=== PATIENT | male | born 1950 | race Caucasian/White ===

== ENCOUNTER 2016-04-29 08:56 | Observation (INO) | payer BC ==
[2016-04-29] MEDS ORDERED: NS 0.9% 1000 ML* 1,000 ML IV ONE (09:18)
[2016-04-29] MEDS ORDERED: fentaNYL* 50 MCG/ML 2 ML VIAL (100 MCG VIAL) ONE (09:26)
[2016-04-29 09:27] LABS: Hematocrit 42 % (42-52); Hemoglobin 14.2 g/dl (14.0-18.0); Mean Corpuscular HGB Conc 34 g/dl (31-36); Mean Corpuscular Hemoglobin 29 pg (27-31); Mean Corpuscular Volume 85 fL (80-94); Mean Platelet Volume 9 um3 (7.4-10.4); Red Blood Count 4.96 10^6/ul (4.0-5.4); Red Cell Distribution Width 14 % (10.5-15)
[2016-04-29] MEDS ORDERED: Midazolam* 1 MG/ML 10 ML VIAL (10 MG) ONE (09:27)
[2016-04-29 09:29] LABS: Add Diff/Slide Review? Slide Review Added; Comments Flag Yes
[2016-04-29 09:38] LABS: Albumin 3.6 g/dL (3.2-5.2); BUN/Creatinine Ratio 18.3 (8-20); Calcium 9.3 mg/dL (8.6-10.3); EGFR African American 87.9 (>60); EGFR Non-African American 68.3 (>60); Globulin 4.2 g/dL (2-4); Potassium 3.8 mmol/L (3.5-5.0); Total Bilirubin 1.1 mg/dL (0.2-1.0); Total Protein 7.8 g/dL (6.4-8.9)
[2016-04-29 09:39] LABS: Troponin I 0.01 ng/mL (<0.04)
[2016-04-29 09:55] LABS: TSH (Thyroid Stimulating Horm) 1.85 mcIU/mL (0.34-5.60)
[2016-04-29] MEDS ORDERED: Acetaminophen TAB* 325 MG PO PRN ×2 (10:11→10:13)
[2016-04-29] MEDS ORDERED: Zolpidem TAB* 5 MG PO PRN (10:13)
[2016-04-29] MEDS ORDERED: Al Hydrox/Mg Hydrox/Simet LIQ* 30 ML UDC PO PRN (10:14)
[2016-04-29] MEDS ORDERED: traMADol TAB* 50 MG PO PRN (10:31)
[2016-04-29] MEDS ORDERED: Docusate CAP* 100 MG PO PRN (10:31)
[2016-04-29] MEDS ORDERED: Midazolam* 1 MG/ML 10 ML VIAL (10 MG) IV ONE (10:44)
[2016-04-29] MEDS ORDERED: fentaNYL* 50 MCG/ML 2 ML VIAL (100 MCG VIAL) IV SLOW PU ONE (10:45)
[2016-04-29] MEDS ORDERED: Magnesium Hydroxide LIQ* 30 ML UDC PO PRN (11:48)
[2016-04-29] MEDS ORDERED: Bisacodyl SUPP* 10 MG SUPP PR PRN (11:49)
[2016-04-29] MEDS: Apixaban* 5 MG TAB PO SCH (19:29)
[2016-04-29] MEDS: Dronedarone TAB* 400 MG PO SCH (19:29)
[2016-04-29] MEDS: Metoprolol Succinate XL TAB* 50 MG PO SCH (20:18)
--- NOTE | 2016-04-29 21:57 | HP ---
HISTORY AND PHYSICAL: DATE OF ADMISSION: 04/29/16 INDICATION FOR ADMISSION: Atrial fibrillation. HISTORY OF PRESENT ILLNESS: The patient is a 65-year-old gentleman with a history of paroxysmal atrial fibrillation who called the answering service today saying he was in atrial fibrillation. The patient had knee surgery 4 days ago for knee replacement. In general, the patient felt a little bit lightheaded with atrial fibrillation. He had no chest pain. He had no shortness of breath. He had mild palpitations. The patient was brought to the emergency room. He was noted to be in atrial fibrillation. His laboratory studies were unremarkable. The patient did undergo cardioversion x2 in the emergency room, but each time, was unable to maintain normal sinus rhythm. The patient is being admitted to the hospital for evaluation and repeat cardioversion in the morning. PAST MEDICAL HISTORY: Significant for arthritis, knee surgery, and atrial fibrillation. Past medical history is also significant for kidney stones. OUTPATIENT MEDICATIONS: 1. Multaq 400 mg b.i.d. 2. Metoprolol ER 50 mg a day. 3. Eliquis 5 mg b.i.d. 4. Potassium. 5. CPAP. ALLERGIES: No known drug allergies. FAMILY HISTORY: Not significant for coronary artery disease or cardiac arrhythmias. SOCIAL HISTORY: He is . 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 Denies tobacco or alcohol use. PHYSICAL EXAMINATION VITAL SIGNS: Height is 6 feet. Weight 211 pounds. Heart rate of 106, blood pressure of 131/81, respiratory rate is 20, and oxygen saturation 93% on room air. HEENT: Sclerae anicteric. Oropharynx is pink without erythema. NECK: Carotids are 2+ without bruits. JVD is normal. Thyroid is normal. LUNGS: Clear to auscultation bilaterally. No dullness to percussion. CARDIAC: S1, S2 without any murmurs, rubs, or gallops. ABDOMEN: Soft, nontender, and nondistended with normoactive bowel sounds. EXTREMITIES: Show no edema. He does have some erythema on to his left knee where he had his knee replacement surgery. DIAGNOSTIC STUDY/LAB DATA: EKG demonstrates atrial fibrillation with heart rate of 106. CBC within normal limits. Chemistries within normal limits; potassium of 3.8, BUN 20, and creatinine 1.09. TSH of 1.85. AST and ALT are within normal limits. Troponin level is negative. IMPRESSION: This is a 65-year-old gentleman with history of paroxysmal atrial fibrillation who was admitted to the hospital because of atrial fibrillation. He underwent cardioversion in the emergency room, but did not convert to normal sinus rhythm. The patient will be observed overnight and attempt at repeat cardioversion in the morning. CC: Dr. Julian; Gerardo Jose DO * [id number]/[facility] #: [id number] [facility]
--- NOTE | 2016-04-30 04:20 | CARD ---
CC: Dr. Julian; Gerardo Jose DO CARDIOVERSION REPORT: DATE OF STUDY: 04/29/16 PROCEDURE: Cardioversion. INDICATION: Atrial fibrillation. HISTORY OF PRESENT ILLNESS: The patient is a 65-year-old gentleman with a history of paroxysmal atr ial fibrillation, who had a knee surgery 4 days ago. The patient called the answering service today saying he was back in atrial fibrillation. The patient was brought to the emergency room for cardi oversion. DESCRIPTION OF PROCEDURE: The patient was in a fasting state. Informed consent had been obtained p rior to the procedure. All labs had been reviewed. The patient was given 5 mg of Versed and 50 mcg of fentanyl for conscious sedation. The patient was cardioverted with 150 joules of synchronized b iphasic energy. The patient did not convert to normal sinus rhythm with that procedure. The patien t was given an additional 1 mg of Versed. The patient was cardioverted with 200 joules of synchroni zed biphasic energy. The patient converted to normal sinus rhythm for 5 seconds and then back to at rial fibrillation. At that time, the decision was to stop the procedure. The patient will be admit marcos to the hospital and reattempt cardioversion in the morning. [id number]/[facility] #: [id number]
[2016-04-30 05:01] LABS: BUN/Creatinine Ratio 20.2 (8-20); Calcium 8.5 mg/dL (8.6-10.3); EGFR African American 92.8 (>60); EGFR Non-African American 72.1 (>60)
[2016-04-30] MEDS: Apixaban* 5 MG TAB PO SCH (07:09)
[2016-04-30] MEDS: Dronedarone TAB* 400 MG PO SCH (07:09)
[2016-04-30] MEDS: Metoprolol Succinate XL TAB* 50 MG PO SCH (07:09)
[2016-04-30] MEDS ORDERED: Midazolam* 1 MG/ML 5 ML VIAL (5 MG) ONE (10:41)
[2016-04-30] MEDS ORDERED: fentaNYL* 50 MCG/ML 2 ML VIAL (100 MCG VIAL) ONE (10:41)
[2016-04-30] MEDS ORDERED: Flumazenil* 0.1 MG/ML 5 ML MDV ONE (10:42)
[2016-04-30] MEDS ORDERED: Naloxone* 0.4 MG/ML 1 ML VIAL ONE (10:42)
[2016-04-30 11:48] VITALS: BP 128/72
[2016-04-30] MEDS ORDERED: Dronedarone TAB* 400 MG PO SCH (18:00)
[2016-04-30] MEDS ORDERED: Apixaban* 5 MG TAB PO SCH (18:00)
[2016-04-30] MEDS ORDERED: Metoprolol Succinate XL TAB* 50 MG PO SCH (18:00)
--- NOTE | 2016-04-30 22:29 | CARD ---
DATE OF PROCEDURE: 04/30/16 - ROOM #433 PROCEDURE: Cardioversion. INDICATION: Atrial fibrillation. The patient is a 65-year-old gentleman with a history of paroxysmal atrial fibrillation, who had knee surgery 5 days ago. The patient came to the emergency room yesterday in atrial fibrillation. A cardioversion in the emergency room was unable to convert to normal sinus rhythm. The patient was admitted to the hospital for repeat cardioversion today. DESCRIPTION OF PROCEDURE: The patient was in a fasting state. Informed consent had been obtained prior to the procedure. All labs had been reviewed. The patient is on Eliquis and Multaq for his atrial fibrillation. The patient was given 5 mg of Versed and 50 mg of fentanyl for conscious sedation. The patient was cardioverted with 200 joules of synchronized biphasic energy. The patient converted to normal sinus rhythm. The patient tolerated the procedure well. There are no complications. The patient was seen by Dr. Jose in followup. CC: Gerardo Jose DO* [id number]/[facility] #: [id number] [facility]
--- NOTE | 2016-05-01 03:16 | DS ---
77DISCHARGE SUMMARY: DATE OF ADMISSION: 04/29/16 DATE OF DISCHARGE: 04/30/16 INDICATION FOR ADMISSION: Atrial fibrillation. HISTORY OF PRESENT ILLNESS: The patient is a 65-year-old gentleman with a history of paroxysmal atrial fibrillation who had recent knee surgery. Please see my admission history and physical for details of his presentation. The patient came to the emergency room yesterday morning in atrial fibrillation. A cardioversion in the emergency room was unsuccessful, converted into normal sinus rhythm. The patient was admitted to the hospital overnight. The patient underwent repeat cardioversion this morning and was able to convert to normal sinus rhythm. The patient is being discharged home. DISCHARGE MEDICATIONS: 1. Multaq 400 mg b.i.d. 2. Metoprolol ER 50 mg twice a day. 3. Eliquis 5 mg b.i.d. 4. Potassium. 5. CPAP. ALLERGIES: No known drug allergies. PHYSICAL EXAMINATION: Vital Signs: On physical examination today heart rate is 72, blood pressure 113/75, respiratory rate is 16. Neck: Carotids are 2+ without bruits. Cardiac Exam: S1 and S2 without any murmurs, rubs, or gallops. Lungs: Clear to auscultation. Extremities: Show edema on his right leg where he had his knee surgery. DISPOSITION: The patient will be discharged home. FOLLOWUP: The patient will follow up with Dr. Jose in 2 to 3 weeks. CC: Dr. Julian; Gerardo Jose, * [id number]/[facility] #: [id number] [facility]TDD
== END 2016-04-30 13:50 | disposition home or self-care (01) ==
LOC: ED 08:56 → MEDTELE 10:10
PROVIDERS: ADMIT Specialist; ATTEND Specialist
DX: I48.0 Paroxysmal atrial fibrillation (principal); Z79.01 Long term (current) use of anticoagulants
CPT/HCPCS: 36415; 80048; 80053; 83605; 83735; 84443; 84484; 85025; 85379; 85610; 92960; 93005; 99285; A9270-GY; G0378; J2250; J2310; J3010

== ENCOUNTER 2018-05-16 18:05 | Inpatient (IN) | payer MEDICARE, BC ==
--- OUTSIDE RECORDS SUMMARY | 2018-05-16 18:32 | XMS REPORT | Continuity of Care Document ---
:1950 External Reference #:[id number] Author Name TerrieElisabet Care Team Providers Name Role Phone Dominick Julian MD Primary Care Physician Unavailable Payers Type Date Identification Numbers Payment Provider Subscriber Effective: 2017 Policy Number: [id number] Medicare Srinivasa Medellin PayID: [id number] [address] [place] [address] Effective: 2011 Policy Number: [id number] [employer] Srinivasa Medellin PayID: [id number] [address] [address] [place] [address] Advance Directives Description No Information Available Problems Date Description Provider Status Onset: 04/25/2015 Atrial fibrillation Gerardoguadalupe Jose, DO FACC Active Family History Date Family Member(s) Problem(s) Comments General cancer Social History Type Date Description Comments Sex Unknown Marital Status Lives With spouse 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, Retired principal Tobacco Use Start: Unknown Never Smoked Cigarettes Smoking Status Reviewed: 04/23/18 Never Smoked Cigarettes ETOH Use Denies alcohol use Tobacco Use Start: Unknown Patient has never smoked Recreational Drug Use Denies Drug Use Exercise Type/Frequency Exercises regularly Allergies, Adverse Reactions, Alerts Description No Known Drug Allergies Medications Medication Date Status Form Strength Qnty SIG Indications Ordering Provider Propafenone Active Caps ER 225mg 270cap 1 by I48.0 Gerardo Downs HCL ER 018 12HR s mouth Jose, DO three FACC times a day Metoprolol Active Tablets ER 25mg 180tab 1 by Gerardo S. Succinate ER 017 24HR s mouth Jose, DO twice FACC daily Eliquis Active Tablets 5mg 180tab 1 by I48.91 Gerardo S. 016 s mouth Jose, DO twice a FACC day Potassium Active Tablets ER 10Meq 2 tablet Unknown Citrate ER 000 (1080 mg) Am, 1 tablet afternoon , 2 tablets PM Cpap Mask And Active Device used at Unknown Supplies 000 bedtime ( started 07/29/15) Amoxicillin Active Tablets 875mg 1 po qd Unknown 000 for tooth extractio n/prn Propafenone Hx Tablets 225mg 180tab 1 by I48.0 Gerardo S. HCL 017 - s mouth Jose, DO three FACC 018 times a day Propafenone Hx Caps ER 325mg 60caps take one I48.0 Gerardo S. HCL ER 017 - 12HR tablet Jose, DO twice FACC 017 daily. Propafenone Hx Caps ER 225mg 180cap take 1 by I48.0 Gerardo S. HCL ER 017 - 12HR s mouth Jose, DO twice a FACC 017 day Metoprolol Hx Tablets ER 50mg 180tab 1 by Gerardo S. Succinate ER 017 - 24HR s mouth Jose, DO every FACC 017 morning and 1/2 every evening Multaq Hx Tablets 400mg 180tab 1 by I48.0 Gerardo S. 016 - s mouth Jose, DO twice a FACC 017 day with meals Metoprolol Hx Tablets ER 100mg 90tabs 1/2 by Gerardo S. Succinate ER 016 - 24HR mouth in Jose, DO the FACC 017 morning and 1/2 by mouth in the evening Metoprolol 2 Hx Tablets 50mg 180tab 1 tablet Gerardo S. Tartrate 016 - s by mouth Jose, DO twice a FACC 016 day Ibuprofen 00/0 Hx x2 months Unknown 000 - as needed 016 Metoprolol 0 Hx Tablets 25mg 180tab 1 tablet Gerardo S. Tartrate 000 - s by mouth DO Damon twice FAC 016 daily Immunizations Description No Information Available Vital Signs Date Vital Result Comment 04/23/2018 3:48pm Height 72 inches 6'0" Weight 213.00 lb no shoes Heart Rate 68 /min BP Systolic Sitting 118 mmHg reg cuff BP Diastolic Sitting 70 mmHg reg cuff BP Systolic Standing 116 mmHg reg cuff BP Diastolic Standing 70 mmHg reg cuff Respiratory Rate 12 /min BMI (Body Mass Index) 28.9 kg/m2 02/17/2018 1:58pm Weight 216.00 lb Heart Rate 69 /min BP Systolic Sitting 130 mmHg Lue reg cuff BP Diastolic Sitting 80 mmHg Lue reg cuff BP Systolic Standing 125 mmHg BP Diastolic Standing 80 mmHg Respiratory Rate 18 /min 01/22/2018 1:41pm Height 72 inches 6'0" Weight 213.00 lb BP Systolic Sitting 128 mmHg left arm manual BP Diastolic Sitting 84 mmHg left arm manual BP Systolic Standing 128 mmHg left arm manual BP Diastolic Standing 82 mmHg left arm manual Pain Level 0 BMI (Body Mass Index) 28.9 kg/m2 08/05/2017 3:08pm Height 72 inches 6'0" Weight 213.00 lb with out shoes Heart Rate 54 /min BP Systolic Sitting 120 mmHg Lue lg cuff BP Diastolic Sitting 80 mmHg Lue lg cuff BP Systolic Standing 120 mmHg Lue lg cuff BP Diastolic Standing 90 mmHg Lue lg cuff Respiratory Rate 16 /min BMI (Body Mass Index) 28.9 kg/m2 04/12/2017 3:15pm Height 72 inches 6'0" Weight 212.00 lb without shoes Heart Rate 70 /min BP Systolic Sitting 138 mmHg Lue reg cuff BP Diastolic Sitting 74 mmHg Lue reg cuff BP Systolic Standing 149 mmHg Lue reg cuff BP Diastolic Standing 80 mmHg Lue reg cuff Respiratory Rate 17 /min BMI (Body Mass Index) 28.7 kg/m2 04/09/2017 8:44am Height 72 inches 6'0" Weight 206.00 lb Heart Rate 82 /min BP Systolic 120 mmHg BP Diastolic 72 mmHg Respiratory Rate 14 /min Body Temperature 97.9 F Pain Level 0 BMI (Body Mass Index) 27.9 kg/m2 04/03/2017 8:33am Height 72 inches 6'0" Weight 206.00 lb no shoes Heart Rate 74 /min BP Systolic Sitting 118 mmHg Lue reg cuff BP Diastolic Sitting 80 mmHg Lue reg cuff BP Systolic Standing 108 mmHg Lue reg cuff BP Diastolic Standing 78 mmHg Lue reg cuff Respiratory Rate 16 /min BMI (Body Mass Index) 27.9 kg/m2 02/21/2017 1:52pm Height 72 inches 6'0" Weight 203.00 lb Heart Rate 62 /min BP Systolic Sitting 126 mmHg Lue reg cuff BP Diastolic Sitting 84 mmHg Lue reg cuff BP Systolic Standing 130 mmHg Lue reg cuff BP Diastolic Standing 86 mmHg Lue reg cuff Respiratory Rate 16 /min BMI (Body Mass Index) 27.5 kg/m2 09/24/2016 3:30pm Height 72 inches 6'0" Weight 204.00 lb without shoes Heart Rate 76 /min reg BP Systolic Sitting 138 mmHg Rue reg cuff BP Diastolic Sitting 88 mmHg Rue reg cuff BP Systolic Standing 144 mmHg Rue reg cuff BP Diastolic Standing 90 mmHg Rue reg cuff Respiratory Rate 17 /min BMI (Body Mass Index) 27.7 kg/m2 08/07/2016 8:35am Height 72 inches 6'0" Weight 214.00 lb Heart Rate 58 /min BP Systolic 100 mmHg BP Diastolic 79 mmHg Respiratory Rate 16 /min Body Temperature 96.3 F Pain Level 3 BMI (Body Mass Index) 29.0 kg/m2 03/29/2016 3:54pm Height 72 inches 6'0" Weight 211.00 lb with shoes Heart Rate 56 /min BP Systolic Sitting 128 mmHg LA reg cuff BP Diastolic Sitting 88 mmHg LA reg cuff BP Systolic Standing 122 mmHg LA BP Diastolic Standing 86 mmHg LA Respiratory Rate 14 /min BMI (Body Mass Index) 28.6 kg/m2 11/08/2015 11:29am Height 72 inches 6'0" Weight 221.00 lb with shoes Heart Rate 70 /min BP Systolic Sitting 100 mmHg Ra Lg cuff BP Diastolic Sitting 70 mmHg Ra Lg cuff BP Systolic Standing 108 mmHg Ra lg cuff BP Diastolic Standing 76 mmHg Ra lg cuff Respiratory Rate 17 /min BMI (Body Mass Index) 30.0 kg/m2 10/10/2015 3:09pm Height 72 inches 6'0" Weight 230.00 lb with shoes Heart Rate 80 /min BP Systolic Sitting 128 mmHg Ra lrg cuff BP Diastolic Sitting 84 mmHg Ra lrg cuff BP Systolic Standing 124 mmHg Ra lrg cuff BP Diastolic Standing 88 mmHg Ra lrg cuff Respiratory Rate 17 /min BMI (Body Mass Index) 31.2 kg/m2 Ejection Fraction 50-55% 04/27/15 08/10/2015 1:21pm Height 72 inches 6'0" Weight 237.50 lb w/ shoes Heart Rate 90 /min BP Systolic Sitting 126 mmHg Rue, lg cuff BP Diastolic Sitting 96 mmHg Rue, lg cuff BP Systolic Standing 128 mmHg Rue BP Diastolic Standing 100 mmHg Rue Respiratory Rate 18 /min BMI (Body Mass Index) 32.2 kg/m2 08/03/2015 1:26pm Height 72 inches 6'0" Weight 242.00 lb with shoes Heart Rate 66 /min BP Systolic Sitting 134 mmHg LA reg cuff BP Diastolic Sitting 94 mmHg LA reg cuff BP Systolic Standing 136 mmHg LA reg cuff BP Diastolic Standing 94 mmHg LA reg cuff Respiratory Rate 17 /min BMI (Body Mass Index) 32.8 kg/m2 06/01/2015 1:47pm Height 72 inches 6'0" Weight 240.00 lb Heart Rate 88 /min BP Systolic Sitting 148 mmHg Ra large cuff BP Diastolic Sitting 94 mmHg Ra large cuff BP Systolic Standing 146 mmHg Ra BP Diastolic Standing 92 mmHg Ra Respiratory Rate 16 /min BMI (Body Mass Index) 32.5 kg/m2 Ejection Fraction 50-55% 04/27/15 [place] 04/25/2015 4:26pm Height 72 inches 6'0" Weight 240.00 lb with shoes Heart Rate 92 /min BP Systolic 128 mmHg Ra lg cuff BP Diastolic 90 mmHg Ra lg cuff BP Systolic Sitting 124 mmHg La lg cuff BP Diastolic Sitting 90 mmHg La lg cuff BP Systolic Standing 122 mmHg La lg cuff BP Diastolic Standing 90 mmHg La lg cuff Respiratory Rate 17 /min BMI (Body Mass Index) 32.5 kg/m2 Results Test Date Facility Test Result H/L Range Note CBC Auto Diff 02/14/2018 [facility] White Blood 8.1 10^3/uL N 3.5-10.[address] [place] [address] [phone] Red Blood Count 5.68 10^6/uL High 4.00-5.40 Hemoglobin 16.6 g/dL N 14.0-18.0 Hematocrit 50 % N 42-52 Mean Corpuscular Volume 88 fL N 80-94 Mean Corpuscular Hemoglobin 29 pg N 27-31 Mean Corpuscular HGB Conc 33 g/dL N 31-36 Red Cell Distribution Width 14 % N 10.5-15 Platelet Count 207 10^3/uL N 150-450 Mean Platelet Volume 8.9 um3 N 7.4-10.4 Abs Neutrophils 5.2 10^3/uL N 1.5-7.7 Abs Lymphocytes 1.9 10^3/uL N 1.0-4.8 Abs Monocytes 0.8 10^3/uL N 0-0.8 Abs Eosinophils 0.1 10^3/uL N 0-0.6 Abs Basophils 0.1 10^3/uL N 0-0.2 Abs Nucleated RBC 0 10^3/uL Granulocyte % 64.8 % N 38-83 Lymphocyte % 23.5 % Low 25-47 Monocyte % 10.0 % High 0-7 Eosinophil % 1.1 % N 0-6 Basophil % 0.6 % N 0-2 Nucleated Red Blood Cells % 0.2 Comp Metabolic Panel 02/14/2018 [facility] Sodium 139 mmol/L N 135-[address] [place] [address] [phone] Potassium 4.5 mmol/L N 3.5-5.0 Chloride 108 mmol/L N 101-111 Co2 Carbon Dioxide 26 mmol/L N 22-32 Anion Gap 5 mmol/L N 2-11 Glucose 101 mg/dL High 70-100 Blood Urea Nitrogen 23 mg/dL N 6-24 Creatinine 1.16 mg/dL N 0.67-1.17 BUN/Creatinine Ratio 19.8 N 8-20 Calcium 9.1 mg/dL N 8.6-10.3 Total Protein 6.8 g/dL N 6.4-8.9 Albumin 4.0 g/dL N 3.2-5.2 Globulin 2.8 g/dL N 2-4 Albumin/Globulin Ratio 1.4 N 1-3 Total Bilirubin 1.00 mg/dL N 0.2-1.0 Alkaline Phosphatase 66 U/L N 34-104 Alt 12 U/L N 7-52 Ast 16 U/L N 13-39 Egfr Non- 63.2 >60 Egfr 76.5 >60 1 Laboratory test 02/14/2018 [facility] Magnesium 2.0 mg/dL N 1.9-2.[address] [place] [address] [phone] Basic Metabolic 04/08/2017 [facility] Sodium 140 mmol/L N 133- 145 Panel [address] [place] [address] [phone] Potassium 4.6 mmol/L N 3.5-5.0 Chloride 106 mmol/L N 101-111 Co2 Carbon Dioxide 31 mmol/L N 22-32 Anion Gap 3 mmol/L N 2-11 Glucose 92 mg/dL N 70-100 Blood Urea Nitrogen 30 mg/dL High 6-24 Creatinine 1.18 mg/dL High 0.67-1.17 BUN/Creatinine Ratio 25.4 High 8-20 Calcium 9.5 mg/dL N 8.6-10.3 Egfr Non- 62.1 >60 Egfr 79.9 >60 2 Laboratory test 04/08/2017 [facility] Magnesium 2.0 mg/dL N 1.9-2.7 finding [address] [place] [address] [phone] Laboratory test 02/11/2017 [facility] Magnesium 2.0 mg/dL N 1.9-2.7 finding [address] [place] [address] [phone] Comp Metabolic 02/11/2017 [facility] Sodium 140 mmol/L N 133- 145 Panel [address] [place] [address] [phone] Potassium 4.2 mmol/L N 3.5-5.0 Chloride 106 mmol/L N 101-111 Co2 Carbon Dioxide 28 mmol/L N 22-32 Anion Gap 6 mmol/L N 2-11 Glucose 106 mg/dL High 70-100 Blood Urea Nitrogen 28 mg/dL High 6-24 Creatinine 1.27 mg/dL High 0.67-1.17 BUN/Creatinine Ratio 22.0 High 8-20 Calcium 9.7 mg/dL N 8.6-10.3 Total Protein 7.1 g/dL N 6.4-8.9 Albumin 3.9 g/dL N 3.2-5.2 Globulin 3.2 g/dL N 2-4 Albumin/Globulin Ratio 1.2 N 1-3 Total Bilirubin 0.90 mg/dL N 0.2-1.0 Alkaline Phosphatase 66 U/L N 34-104 Alt 14 U/L N 7-52 Ast 13 U/L N 13-39 Egfr Non- 57.1 N >60 Egfr 73.4 N >60 3 Comp Metabolic Panel 11/04/2015 [facility] Sodium 141 mmol/L N 133-145 [address] [place] [address] [phone] Potassium 4.1 mmol/L N 3.5-5.0 Chloride 108 mmol/L N 101-111 Co2 Carbon Dioxide 27 mmol/L N 22-32 Anion Gap 6 mmol/L N 2-11 Glucose 93 mg/dL N 70-100 Blood Urea Nitrogen 30 mg/dL High 6-24 Creatinine 1.24 mg/dL High 0.67-1.17 BUN/Creatinine Ratio 24.2 High 8-20 Calcium 8.9 mg/dL N 8.6-10.3 Total Protein 6.5 g/dL N 6.4-8.9 Albumin 3.7 g/dL N 3.2-5.2 Globulin 2.8 g/dL N 2-4 Albumin/Globulin Ratio 1.3 N 1-3 Total Bilirubin 0.70 mg/dL N 0.2-1.0 Alkaline Phosphatase 64 U/L N 34-104 Alt 9 U/L N 7-52 Ast 10 U/L Low 13-39 Egfr Non- 58.9 N >60 Egfr 75.7 N >60 4 Laboratory test 06/20/2015 [facility] Inr/Protime 1.11 N 0.89- 1.11 finding [address] [place] [address] [phone] Partial Thrombo Time PTT 35.8 seconds N 26.0-36.3 Inr/Protime 04/25/2015 [facility] Inr 1.06 N 0.89-1.11 [address] [place] [address] [phone] Laboratory test 04/25/2015 [facility] Partial 40.1 High 26.0- 36.3 finding 101 [facility] [place] [address] Time PTT [phone] Free T4 (Free Thyroxine) 0.85 ng/mL N 0.61-1.12 TSH (Thyroid Stim Horm) 3.54 ?IU/mL N 0.34-5.60 B-Type Natriuretic Peptide BNP 508 pg/mL High 5 Comp Metabolic Panel 04/25/2015 [facility] Sodium 139 mmol/L N 133-[address] [place] [address] [phone] Potassium 4.5 mmol/L N 3.5-5.0 Chloride 104 mmol/L N 101-111 Co2 Carbon Dioxide 30 mmol/L N 22-32 Anion Gap 5 mmol/L N 2-11 Glucose 106 mg/dL High 70-100 Blood Urea Nitrogen 30 mg/dL High 6-24 Creatinine 1.30 mg/dL High 0.67-1.17 BUN/Creatinine Ratio 23.1 High 8-20 Calcium 9.1 mg/dL N 8.6-10.3 Total Protein 7.1 g/dL N 6.4-8.9 Albumin 4.0 g/dL N 3.2-5.2 Globulin 3.1 g/dL N 2-4 Albumin/Globulin Ratio 1.3 N 1-3 Total Bilirubin 0.60 mg/dL N 0.2-1.0 Alkaline Phosphatase 68 U/L N 34-104 Alt 19 U/L N 7-52 Ast 15 U/L N 13-39 Egfr Non- 55.9 N >60 Egfr 71.9 N >60 6 CBC Auto Diff 04/25/2015 [facility] White Blood 8.3 10^3/uL N 3.5-10.[address] [place] [address] [phone] Red Blood Count 5.63 10^6/uL High 4.0-5.4 Hemoglobin 16.1 g/dL N 14.0-18.0 Hematocrit 49 % N 42-52 Mean Corpuscular Volume 86 fL N 80-94 Mean Corpuscular Hemoglobin 29 pg N 27-31 Mean Corpuscular HGB Conc 33 g/dL N 31-36 Red Cell Distribution Width 14 % N 10.5-15 Platelet Count 216 10^3/uL N 150-450 Mean Platelet Volume 8 um3 N 7.4-10.4 Abs Neutrophils 4.7 10^3/uL N 1.5-7.7 Abs Lymphocytes 2.6 10^3/uL N 1.0-4.8 Abs Monocytes 0.7 10^3/uL N 0-0.8 Abs Eosinophils 0.1 10^3/uL N 0-0.6 Abs Basophils 0.1 10^3/uL N 0-0.2 Abs Nucleated RBC 0.01 10^3/uL N Granulocyte % 57.0 % N 38-83 Lymphocyte % 31.6 % N 25-47 Monocyte % 9.0 % N 1-9 Eosinophil % 1.7 % N 0-6 Basophil % 0.7 % N 0-2 Nucleated Red Blood Cells % 0.1 N Laboratory test 04/25/2015 [facility] Magnesium 2.1 mg/dL N 1.9-2.[address] [place] [address] [phone] 1 Because ethnic data is not always readily available, this report includes an eGFR for both -Americans and non- Americans. The National Kidney Disease Education Program (NKDEP) does not endorse the use of the MDRD equation for patients that are not between the ages of 18 and 70, are , have extremes of body size, muscle mass, or nutritional status, or are non- or non-. According to the National Kidney Foundation, irrespective of diagnosis, the stage of the disease is based on the level of kidney function: Stage Description GFR(mL/min/1.73 m(2)) 1 Kidney damage with normal or decreased GFR 90 2 Kidney damage with mild decrease in GFR 60-89 3 Moderate decrease in GFR 30-59 4 Severe decrease in GFR 15-29 5 Kidney failure <15 (or dialysis) 2 Because ethnic data is not always readily available, this report includes an eGFR for both -Americans and non- Americans. The National Kidney Disease Education Program (NKDEP) does not endorse the use of the MDRD equation for patients that are not between the ages of 18 and 70, are , have extremes of body size, muscle mass, or nutritional status, or are non- or non-. According to the National Kidney Foundation, irrespective of diagnosis, the stage of the disease is based on the level of kidney function: Stage Description GFR(mL/min/1.73 m(2)) 1 Kidney damage with normal or decreased GFR 90 2 Kidney damage with mild decrease in GFR 60-89 3 Moderate decrease in GFR 30-59 4 Severe decrease in GFR 15-29 5 Kidney failure <15 (or dialysis) 3 Because ethnic data is not always readily available, this report includes an eGFR for both -Americans and non- Americans. The National Kidney Disease Education Program (NKDEP) does not endorse the use of the MDRD equation for patients that are not between the ages of 18 and 70, are , have extremes of body size, muscle mass, or nutritional status, or are non- or non-. According to the National Kidney Foundation, irrespective of diagnosis, the stage of the disease is based on the level of kidney function: Stage Description GFR(mL/min/1.73 m(2)) 1 Kidney damage with normal or decreased GFR 90 2 Kidney damage with mild decrease in GFR 60-89 3 Moderate decrease in GFR 30-59 4 Severe decrease in GFR 15-29 5 Kidney failure <15 (or dialysis) 4 Because ethnic data is not always readily available, this report includes an eGFR for both -Americans and non- Americans. The National Kidney Disease Education Program (NKDEP) does not endorse the use of the MDRD equation for patients that are not between the ages of 18 and 70, are , have extremes of body size, muscle mass, or nutritional status, or are non- or non-. According to the National Kidney Foundation, irrespective of diagnosis, the stage of the disease is based on the level of kidney function: Stage Description GFR(mL/min/1.73 m(2)) 1 Kidney damage with normal or decreased GFR 90 2 Kidney damage with mild decrease in GFR 60-89 3 Moderate decrease in GFR 30-59 4 Severe decrease in GFR 15-29 5 Kidney failure <15 (or dialysis) 5 >100 to <200 pg/mL: likely compensated congestive heart failure (CHF) 200 to 400 pg/mL: likely moderate CHF >400 pg/mL: likely moderate to severe CHF 6 Because ethnic data is not always readily available, this report includes an eGFR for both -Americans and non- Americans. The National Kidney Disease Education Program (NKDEP) does not endorse the use of the MDRD equation for patients that are not between the ages of 18 and 70, are , have extremes of body size, muscle mass, or nutritional status, or are non- or non-. According to the National Kidney Foundation, irrespective of diagnosis, the stage of the disease is based on the level of kidney function: Stage Description GFR(mL/min/1.73 m(2)) 1 Kidney damage with normal or decreased GFR 90 2 Kidney damage with mild decrease in GFR 60-89 3 Moderate decrease in GFR 30-59 4 Severe decrease in GFR 15-29 5 Kidney failure <15 (or dialysis) Procedures Date Code Description Status 04/23/2018 38628 EKG Tracing & Interpretation Completed 02/17/2018 26257 EKG Tracing & Interpretation Completed 02/14/2018 78929 EKG, Interpretation Only Completed 01/22/2018 16911 EKG Tracing & Interpretation Completed 08/14/2017 21120 Holter Monitor Review (24 hr)dr review & interp only Completed 08/12/2017 09023 ECG Monitor/Recording W/Visual Superimposition Scanning Completed 08/05/2017 43748 EKG Tracing & Interpretation Completed 04/12/2017 89915 EKG Tracing & Interpretation Completed 04/08/2017 18509 EKG, Interpretation Only Completed 04/08/2017 99804 Cardioversion Completed 04/03/2017 35925 EKG Tracing & Interpretation Completed 03/13/2017 72536 Stress Test Completed 03/13/2017 52765 Stress Test Completed 03/13/2017 92090 Stress Test Completed 02/21/2017 86875 EKG Tracing & Interpretation Completed 02/11/2017 59855 EKG, Interpretation Only Completed 02/11/2017 97512 Cardioversion Completed 09/24/2016 88434 EKG Tracing & Interpretation Completed 09/04/2016 33515 EKG, Interpretation Only Completed 09/04/2016 91022 Cardioversion Completed 04/30/2016 15747 EKG, Interpretation Only Completed 04/30/2016 92931 Cardioversion Completed 04/29/2016 86389 Cardioversion Completed 03/29/2016 64629 EKG Tracing & Interpretation Completed 11/08/2015 56089 EKG Tracing & Interpretation Completed 10/14/2015 47384 Stress ECHO Interpretation/Report Hospital Completed 10/14/2015 55646 Treadmill Interp/Report Only Completed 10/14/2015 07544 Stress Test Supervsn W/Out I/R Completed 10/10/2015 09455 EKG Tracing & Interpretation Completed 10/09/2015 54580 Cardioversion Completed 08/10/2015 86722 EKG Tracing & Interpretation Completed 08/05/2015 37181 EKG, Interpretation Only Completed 08/05/2015 12744 Cardioversion Completed 08/03/2015 37268 EKG Tracing & Interpretation Completed 06/30/2015 09290 Cardiac Event Monitor Completed 06/20/2015 59608 Cardioversion Completed 06/04/2015 78713 Event Monitor/Phys Review/Interp. Completed 06/01/2015 68463 EKG Tracing & Interpretation Completed 04/27/2015 61660 Color Flow Doppler/Interp & Reprt Completed 04/27/2015 16826 Pulse Wave/Continuous-Interp.RPT Completed 04/27/2015 81096 Echocardiography, Transesophageal, Real Time W/Image 2D Completed W/W/O M-M 04/27/2015 10579 EKG, Interpretation Only Completed 04/27/2015 72036 Cardioversion Completed 04/25/2015 89291 EKG Tracing & Interpretation Completed 06/27/2011 26704 Xray Knee 3 Views Completed 06/27/2011 68133 Xray Knee 3 Views Completed 06/27/2011 42291 Rad Exam; Knee, Ap&L Completed 06/27/2011 54161 Rad Exam; Knee, Ap&L Completed Encounters Type Date Location Provider Dx Diagnosis Office Visit 02/17/2018 [facility] Gerardo S. Jose, I48.0 Paroxysmal atrial 2:20p Of [employer] DO FACC fibrillation I48.92 Unspecified atrial flutter G47.33 Obstructive sleep apnea (adult) (pediatric) Office Visit 01/22/2018 2:00p [facility] Gerardo S. I48.0 Paroxysmal atrial [employer] Jose, DO fibrillation FACC I48.92 Unspecified atrial flutter G47.33 Obstructive sleep apnea (adult) (pediatric) Office Visit 08/05/2017 3:40p [facility] Gerardo S. I48.0 Paroxysmal atrial Of [employer] Jose, DO fibrillation FACC I48.92 Unspecified atrial flutter G47.33 Obstructive sleep apnea (adult) (pediatric) Office Visit 04/12/2017 3:40p [facility] Gerardo S. I48.0 Paroxysmal atrial Of [employer] Jose, DO fibrillation FACC I48.92 Unspecified atrial flutter Office Visit 04/09/2017 [facility] Domin[facility] M77.41 Metatarsalgia, right 8:45a Services Of [place], M.D. foot C.M.A. Office Visit 04/03/2017 [place] Gerardo S. I48.0 Paroxysmal atrial 8:45a Cardiology Of Jose, DO fibrillation [employer] FACC G47.33 Obstructive sleep apnea (adult) (pediatric) Office Visit 02/21/2017 2:00p [facility] Gerardo S. I48.0 Paroxysmal atrial Of [employer]er Jose, DO fibrillation FACC G47.33 Obstructive sleep apnea (adult) (pediatric) Office Visit 02/11/2017 10:54a [facility] Gerardo S. I48.0 Paroxysmal atrial Of [employer] Jose, DO fibrillation FACC Office Visit 09/24/2016 3:40p [facility] Gerardo S. I48.0 Paroxysmal atrial Of [employer] Jose, DO fibrillation FACC G47.33 Obstructive sleep apnea (adult) (pediatric) Office Visit 08/07/2016 Orthopedic Dominick M84.374A Stress fracture, 8:30a Services Of Saima [employer] right foot, C.M.A. initial encounter for fracture Office Visit 04/30/2016 Dat Silvestre I48.0 Paroxysmal atrial 11:30a Cardiology Of Saima Alegria fibrillation [facility] Office Visit 04/29/2016 Dat Silvestre I48.0 Paroxysmal atrial 11:23a Cardiology Of Saima Alegria fibrillation [facility] Office Visit 03/29/2016 Dat Carrillo S. I48.0 Paroxysmal atrial 4:00p Cardiology Of Jose, DO fibrillation [employer] FACC G47.33 Obstructive sleep apnea (adult) (pediatric) Office Visit 11/08/2015 11:45a [facility] Gerardo S. I48.0 Paroxysmal atrial Of [employer]er Jose, DO fibrillation FACC G47.33 Obstructive sleep apnea (adult) (pediatric) Office Visit 10/10/2015 3:40p [facility] Gerardo S. I48.0 Paroxysmal atrial Of [employer] Jose, DO fibrillation FACC G47.33 Obstructive sleep apnea (adult) (pediatric) Office Visit 10/09/2015 3:05p [facility] Radha Spencer I48.0 Paroxysmal atrial Of [employer]er M.D. fibrillation Office Visit 08/10/2015 1:40p [facility] Gerardo S. I48.0 Paroxysmal atrial Of [employer] Jose, DO fibrillation FACC G47.33 Obstructive sleep apnea (adult) (pediatric) Office Visit 08/05/2015 Kimi HeartSharifa 10:46a Cardiology Saima Quevedo Office Visit 08/03/2015 [place] Gerardo Jose, I48.0 Paroxysmal atrial 1:40p Cardiology Of DO FACC fibrillation [facility] G47.33 Obstructive sleep apnea (adult) (pediatric) Office Visit 06/01/2015 2:00p [place] [facility] Gerardo Downs I48.0 Paroxysmal atrial Of [employer] Jose, DO fibrillation FACC Office Visit 04/25/2015 3:40p [place] [facility] Gerardo Downs I48.91 Unspecified atrial Of [employer] Jose, DO fibrillation FACC R06.02 Shortness of breath Office Visit 06/27/2011 10:15a [facility]opedic Emmanuel Blandon, 715.96 Osteoarthrosis Services Of Saima Lutz Or C.M.ASharifa Localized Lower Leg 716.96 Arthropathy Unspec Lower Leg Plan of Treatment 04/23/2018 - Gerardo Jose DO FACCI48.3 Typical atrial flutterReferral: Romeo Blue MD, Electrophysio,Clincl/PhysFollow up:f/u 6 [id number] Paroxysmal atrial fibrillation
[2018-05-16 18:47] LABS: Urine Appearance Clear; Urine Bacteria 1+ (Absent); Urine Bilirubin Negative (Negative); Urine Blood 2+ (Negative); Urine Color Yellow; Urine Glucose Negative (Negative); Urine Ketones Negative (Negative); Urine Nitrite Positive (Negative); Urine Protein Negative (Negative); Urine Red Blood Cell 2+(6-10/hpf) (Absent); Urine Specific Gravity 1.014 (1.010-1.030); Urine Urobilinogen Negative (Negative); Urine White Blood Cell 3+(>20/hpf) (Absent)
[2018-05-16 20:07] LABS: ABS Basophils 0.1 10^3/ul (0-0.2); ABS Eosinophils 0 10^3/ul (0-0.6); ABS Lymphocytes 1.5 10^3/ul (1.0-4.8); ABS Monocytes 1.3 10^3/ul (0-0.8); ABS Neutrophils 11.7 10^3/ul (1.5-7.7); ABS Nucleated RBC 0 10^3/ul; Eosinophil % 0.3 %; Hematocrit 39 % (42-52); Hemoglobin 13.2 g/dl (14.0-18.0); Lymphocyte % 10.2 %; Mean Corpuscular HGB Conc 34 g/dl (31-36); Mean Corpuscular Hemoglobin 28 pg (27-31); Mean Corpuscular Volume 84 fL (80-94); Mean Platelet Volume 7.5 fL (7.4-10.4); Nucleated Red Blood Cells % 0; Platelet Count 252 10^3/ul (150-450); Red Blood Count 4.66 10^6/ul (4.00-5.40); Red Cell Distribution Width 14 % (10.5-15); White Blood Count 14.5 10^3/ul (3.5-10.8)
[2018-05-16 20:17] LABS: Activated Partial Thrombo Time 37.1 seconds (26.0-36.3); INR 1.28 (0.77-1.02)
[2018-05-16 20:24] LABS: Albumin 3.7 g/dL (3.2-5.2); BUN/Creatinine Ratio 18.3 (8-20); Calcium 9.4 mg/dL (8.6-10.3); EGFR African American 86.7 (>60); EGFR Non-African American 71.7 (>60); Globulin 3.8 g/dL (2-4); Potassium 3.8 mmol/L (3.5-5.0); Total Protein 7.5 g/dL (6.4-8.9)
[2018-05-16] MEDS ORDERED: Acetaminophen TAB* 325 MG PO ONE (20:59)
[2018-05-16] MEDS ORDERED: NS 0.9% 1000 ML*IV.FLUID IV ONE (21:00)
[2018-05-16] MEDS ORDERED: cefTRIAXone(*) 1 GM in NS 0.9% 50 ML* 50 ML IVPB ONE (21:38)
--- NOTE | 2018-05-16 21:38 | ED ---
GI/ HPI - HPI Summary HPI Summary: 67-year-old male with past medical history Klaudia santiago presents with urinary symptoms for the past couple days. He admits to dysuria and frequency. he developed a fever today. He states he spoke with Dr. Chiu his urologist he sees for kidney stones and told him to the ED. He denies any rectal pain. No nausea vomiting. No flank pain. No diarrhea or constipation. Had normal bowel movement today. He denies any cough. No sore throat. No headache. He states he feels very weak. He has not taking anything for his fever. He states that when he gets dehydrated he goes into A. pamela is concerned about such. - History of Current Complaint Chief Complaint: EDUrogenitalProblems Time Seen by Provider: 05/16/18 21:31 Stated Complaint: FEVER, UROGENITAL PROBLEMS Pain Intensity: 0 - Additional Pertinent History Primary Care Physician: ERUM - Allergy/Home Medications Allergies/Adverse Reactions: Allergies Allergy/AdvReac Type Severity Reaction Status Date / Time No Known Allergies Allergy Verified 04/29/16 09:08 PMH/Surg Hx/FS Hx/Imm Hx Endocrine/Hematology History: Denies: Hx Diabetes, Hx Thyroid Disease Cardiovascular History: Reports: Hx Atrial Fibrillation Denies: Hx Angina, Hx Coronary Artery Disease, Hx Hypercholesterolemia, Hx Hypertension, Hx Myocardial Infarction, Hx Peripheral Vascular Disease Respiratory History: Denies: Hx Asthma, Hx Chronic Obstructive Pulmonary Disease (COPD) GI History: Denies: Hx Ulcer History: Reports: Hx Kidney Stones Musculoskeletal History: Denies: Hx Arthritis, Hx Osteoporosis Sensory History: Reports: Hx Contacts or Glasses Denies: Hx Cataracts, Hx Glaucoma Opthamlomology History: Reports: Hx Contacts or Glasses Denies: Hx Cataracts, Hx Glaucoma Neurological History: Denies: Hx Headaches, Hx Seizures, Hx Transient Ischemic Attacks (TIA) Psychiatric History: Denies: Hx Anxiety, Hx Depression - Surgical History Surgery Procedure, Year, and Place: HERNIA REPAIR 2004. VASECTOMY. RIGHT KNEE SURGERY WHEN A TEEN. Right knee replacement 04/25/16 - Immunization History Date of Tetanus Vaccine: pt unable to recall Date of Influenza Vaccine: Fall 2015 Infectious Disease History: No Infectious Disease History: Denies: Hx Clostridium Difficile, Hx Hepatitis, Hx Human Immunodeficiency Virus (HIV), Hx of Known/Suspected MRSA, Hx Shingles, Hx Tuberculosis, Hx Known/ Suspected VRE, Hx Known/Suspected VRSA, History Other Infectious Disease, Traveled Outside the [place] in Last 30 Days - Family History Known Family History: Positive: Other - cancer - Social History Alcohol Use: None Substance Use Type: Reports: None Smoking Status (MU): Never Smoked Tobacco Review of Systems Positive: Fever Negative: Chest Pain Negative: Shortness Of Breath Negative: Abdominal Pain Positive: dysuria, frequency. Negative: flank pain All Other Systems Reviewed And Are Negative: Yes Physical Exam Triage Information Reviewed: Yes Vital Signs On Initial Exam: Initial Vitals Temp Pulse Resp BP Pulse Ox 99.3 F 101 20 156/99 100 05/16/18 18:08 05/16/18 18:08 05/16/18 18:08 05/16/18 18:08 05/16/18 18:08 Vital Signs Reviewed: Yes Appearance: Positive: Ill-Appearing Skin: Positive: Warm, Dry Head/Face: Positive: Normal Head/Face Inspection Eyes: Positive: Normal, EOMI, DAVID, Conjunctiva Clear ENT: Positive: Normal ENT inspection, Pharynx normal, TMs normal Respiratory/Lung Sounds: Positive: Clear to Auscultation, Breath Sounds Present Cardiovascular: Positive: Normal, RRR Abdomen Description: Positive: Nontender, Soft. Negative: CVA Tenderness (R), CVA Tenderness (L) Bowel Sounds: Positive: Present Musculoskeletal: Positive: Normal Neurological: Positive: Normal Psychiatric: Positive: Normal Diagnostics - Vital Signs Vital Signs Temp Pulse Resp BP Pulse Ox 05/16/18 20:12 102.9 F 94 16 145/89 97 05/16/18 18:08 99.3 F 101 20 156/99 100 - Laboratory Lab Results: Lab Results 05/16/18 05/16/18 05/16/18 Range/Units 18:22 19:52 19:52 WBC 14.5 H (3.5-10.8) 10^3/ul RBC 4.66 (4.00-5.40) 10^6/ul Hgb 13.2 L (14.0-18.0) g/dl Hct 39 L (42-52) % MCV 84 (80-94) fL MCH 28 (27-31) pg MCHC 34 (31-36) g/dl RDW 14 (10.5-15) % Plt Count 252 (150-450) 10^3/ul MPV 7.5 (7.4-10.4) fL Neut % (Auto) 80.3 % Lymph % (Auto) 10.2 % White % (Auto) 8.6 % Eos % (Auto) 0.3 % Baso % (Auto) 0.6 % Absolute Neuts (auto) 11.7 H (1.5-7.7) 10^3/ul Absolute Lymphs (auto) 1.5 (1.0-4.8) 10^3/ul Absolute Monos (auto) 1.3 H (0-0.8) 10^3/ul Absolute Eos (auto) 0 (0-0.6) 10^3/ul Absolute Basos (auto) 0.1 (0-0.2) 10^3/ul Absolute Nucleated RBC 0 10^3/ul Nucleated RBC % 0 INR (Anticoag Therapy) 1.28 H (0.77-1.02) APTT 37.1 H (26.0-36.3) seconds Sodium (135-145) mmol/L Potassium (3.5-5.0) mmol/L Chloride (101-111) mmol/L Carbon Dioxide (22-32) mmol/L Anion Gap (2-11) mmol/L BUN (6-24) mg/dL Creatinine (0.67-1.17) mg/dL Est GFR ( Amer) (>60) Est GFR (Non-Af Amer) (>60) BUN/Creatinine Ratio (8-20) Glucose (70-100) mg/dL Lactic Acid (0.5-2.0) mmol/L Calcium (8.6-10.3) mg/dL Total Bilirubin (0.2-1.0) mg/dL AST (13-39) U/L ALT (7-52) U/L Alkaline Phosphatase (34-104) U/L Total Protein (6.4-8.9) g/dL Albumin (3.2-5.2) g/dL Globulin (2-4) g/dL Albumin/Globulin Ratio (1-3) Urine Color Yellow Urine Appearance Clear Urine pH 7.0 (5-9) Ur Specific [place] 1.014 (1.010-1.030) Urine Protein Negative (Negative) Urine Ketones Negative (Negative) Urine Blood 2+ A (Negative) Urine Nitrate Positive A (Negative) Urine Bilirubin Negative (Negative) Urine Urobilinogen Negative (Negative) Ur Leukocyte Esterase 2+ A (Negative) Urine WBC (Auto) 3+(>20/hpf) A (Absent) Urine RBC (Auto) 2+(6-10/hpf) A (Absent) Urine Bacteria 1+ A (Absent) Urine Yeast Present A (Absent) Urine Glucose Negative (Negative) 05/16/18 05/16/18 Range/Units 19:52 19:52 WBC (3.5-10.8) 10^3/ul RBC (4.00-5.40) 10^6/ul Hgb (14.0-18.0) g/dl Hct (42-52) % MCV (80-94) fL MCH (27-31) pg MCHC (31-36) g/dl RDW (10.5-15) % Plt Count (150-450) 10^3/ul MPV (7.4-10.4) fL Neut % (Auto) % Lymph % (Auto) % White % (Auto) % Eos % (Auto) % Baso % (Auto) % Absolute Neuts (auto) (1.5-7.7) 10^3/ul Absolute Lymphs (auto) (1.0-4.8) 10^3/ul Absolute Monos (auto) (0-0.8) 10^3/ul Absolute Eos (auto) (0-0.6) 10^3/ul Absolute Basos (auto) (0-0.2) 10^3/ul Absolute Nucleated RBC 10^3/ul Nucleated RBC % INR (Anticoag Therapy) (0.77-1.02) APTT (26.0-36.3) seconds Sodium 136 (135-145) mmol/L Potassium 3.8 (3.5-5.0) mmol/L Chloride 102 (101-111) mmol/L Carbon Dioxide 25 (22-32) mmol/L Anion Gap 9 (2-11) mmol/L BUN 19 (6-24) mg/dL Creatinine 1.04 (0.67-1.17) mg/dL Est GFR ( Amer) 86.7 (>60) Est GFR (Non-Af Amer) 71.7 (>60) BUN/Creatinine Ratio 18.3 (8-20) Glucose 113 H (70-100) mg/dL Lactic Acid 1.4 (0.5-2.0) mmol/L Calcium 9.4 (8.6-10.3) mg/dL Total Bilirubin 1.00 (0.2-1.0) mg/dL AST 13 (13-39) U/L ALT 10 (7-52) U/L Alkaline Phosphatase 90 (34-104) U/L Total Protein 7.5 (6.4-8.9) g/dL Albumin 3.7 (3.2-5.2) g/dL Globulin 3.8 (2-4) g/dL Albumin/Globulin Ratio 1.0 (1-3) Urine Color Urine Appearance Urine pH (5-9) Ur Specific [place] (1.010-1.030) Urine Protein (Negative) Urine Ketones (Negative) Urine Blood (Negative) Urine Nitrate (Negative) Urine Bilirubin (Negative) Urine Urobilinogen (Negative) Ur Leukocyte Esterase (Negative) Urine WBC (Auto) (Absent) Urine RBC (Auto) (Absent) Urine Bacteria (Absent) Urine Yeast (Absent) Urine Glucose (Negative) Result Diagrams: 05/16/18 19:52 05/16/18 19:52 Lab Statement: Any lab studies that have been ordered have been reviewed, and results considered in the medical decision making process. GIGU Course/Dx - Course Course Of Treatment: 67 year old male presents with urinary symptoms for past couple days. He denies any flank pain or rectal pain. He developed fever today. No nausea vomiting. On exam appears ill. Nontender flanks. Nontender abdomen. white blood cell count of the 14. Vitals tachycardic with fever. CT shows possible enhancement of the prostate which may indicate a prostatitis. Also thickening of the bladder. Gave dose of Rocephin initially for the UTIbut with CT added on Levaquin to cover for possible prostatitis. Discussed with hospitalist agrees to admit. - Diagnoses Differential Diagnoses - Male: Pyelonephritis, Ureteral Calculi, Urinary Tract Infection Provider Diagnoses: Urinary tract infection, Fever Discharge - Sign-Out/Discharge Documenting (check all that apply): Patient Departure - Discharge Plan Condition: Stable Disposition: ADMITTED TO [facility] - Billing Disposition and Condition Condition: STABLE Disposition: Admitted to [facility]
[2018-05-16 23:03] LABS: Influenza A Molecular NEGATIVE (Negative); Influenza B Molecular NEGATIVE (Negative)
[2018-05-16] MEDS ORDERED: Levofloxacin 750 MG IVPREMIX(* 750 MG/150 ML BAG IVPB ONE (23:03)
[2018-05-16] MEDS ORDERED: Acetaminophen TAB* 325 MG PO PRN (23:42)
[2018-05-16] MEDS ORDERED: Ondansetron INJ* 2 MG/ML VIAL IV PRN (23:42)
--- NOTE | 2018-05-16 23:44 | ADMNOTE ---
Subjective Date of Service: 05/16/18 - History and Physical Interval History: HISTORY AND PHYSICAL CHIEF COMPLAINT: Burning with urination, fever HISTORY OF PRESENTING ILLNESS: This is a 67 year old Male with history of atrial fibrillation, kidney stone with uric acid, who presents to the emergency room because of burning with urination, urgency and hesitancy X 3 days. This is associated with fever of 101F today and associated with chills. He reports that 6 weeks ago he had Left knee replacement and he is participating with Physical therapy and swimming more often. He feels bloated, but no abdominal pain. There is no back pain. PAST MEDICAL HISTORY Atrial fibrillation, rhythm control Kidney stone- uric acid PAST SURGICAL HISTORY Left knee replacement 6 weeks Hernia surgery Right knee replacement SOCIAL HISTORY Lives at home with Does not smoke No alcohol use FAMILY HISTORY Mother: esophageal cancer Father: emphysema Review of Systems - Measurements Intake and Output: Intake and Output Last 24 Hours 05/14/18 05/15/18 05/16/18 05/17/18 06:59 06:59 06:59 06:59 Intake Total 50 Balance 50 Weight 215 lb Intake: IVPB 50 - Review of Systems Constitutional Symptoms: Positive: Fatigue, Fever, Other - chills Dermatology: Negative: Rash, Skin Lesions HEENT: Negative: Change in Hearing, Dental Problems Eyes: Negative: Change in Vision, Double Vision Thyroid: Negative: Tremor, Frequent Defecation Pulmonary: Negative: Cough, Sputum, Shortness of Breath, Home Oxygen Cardiology: Negative: Chest Pain, Shortness of Breath, Palpitations Gastroenterology: Negative: Abdominal Pain, Nausea, Vomiting Genital - Urinary: Positive: Dysuria, Other - hesitancy, urgency, increaed frequency Musculoskeletal: Negative: Joint Stiffness Hematologic/Lymphatic: Positive: Use of Anticoagulant Negative: Anemia, Easy Brusing Neurology: Negative: Headache, Migraines, Unexplained Weakness Psychiatry: Negative: Depression, Anxiety Objective Active Medications: Acetaminophen (Tylenol Tab*) 650 mg PO Q6H PRN PRN Reason: FEVER/PAIN Apixaban (Eliquis*) 5 mg PO BID DARY Levofloxacin/Dextrose (Levaquin 750 Mg Ivpremix(*)) 750 mg in 150 mls @ 100 mls /hr IVPB ED ONCE ONE Stop: 05/17/18 00:32 Last Admin: 05/16/18 23:40 Dose: 100 mls/hr Sodium Chloride (Ns 0.9% 1000 Ml*) 1,000 mls @ 100 mls/hr IV PER RATE [facility] Ceftriaxone Sodium 1 gm/ (Sodium Chloride) 50 mls @ 200 mls/hr IVPB Q24H [facility] Non-Formulary Medication (Metoprolol Succinate Er) 25 mg PO BID [facility] Ondansetron HCl (Zofran Inj*) 4 mg IV Q6H PRN PRN Reason: NAUSEA Potassium Citrate (Urocit-K 10 (Nf)) 20 meq PO TID DARY Propafenone HCl (Rythmol Er (Nf)) 225 mg PO TID DARY; Protocol Vital Signs - 8 hr 05/16/18 05/16/18 05/16/18 18:08 20:12 21:31 Temperature 99.3 F 102.9 F Pulse Rate 101 94 96 Respiratory 20 16 Rate Blood Pressure 156/99 145/89 137/94 (mmHg) O2 Sat by Pulse 100 97 98 Oximetry 05/16/18 05/16/18 05/16/18 21:32 22:00 22:01 Temperature Pulse Rate 95 97 96 Respiratory Rate Blood Pressure 154/97 (mmHg) O2 Sat by Pulse 97 98 96 Oximetry 05/16/18 22:32 Temperature Pulse Rate 92 Respiratory 13 Rate Blood Pressure 126/82 (mmHg) O2 Sat by Pulse 96 Oximetry Oxygen Devices in Use Now: None Appearance: Well developed, well nourished male lying in ER stretcher not in distress Eyes: PERRLA, - - no nystagmus Ears/Nose/Mouth/Throat: - - oral mucosa is dry, no nystagmus Neck: NL Appearance and Movements; NL JVP, Trachea Midline Respiratory: Symmetrical Chest Expansion and Respiratory Effort, Clear to Auscultation Cardiovascular: NL Sounds; No Murmurs; No JVD, RRR, No Edema Abdominal: NL Sounds; No Tenderness; No Distention Extremities: No Edema Skin: No Rash or Ulcers Neurological: Alert and Oriented x 3, NL Sensation, NL Muscle Strength and Tone Result Diagrams: 05/16/18 19:52 05/16/18 19:52 Additional Lab and Data: Lab Results 05/16/18 05/16/18 05/16/18 Range/Units 18:22 19:52 19:52 WBC 14.5 H (3.5-10.8) 10^3/ul RBC 4.66 (4.00-5.40) 10^6/ul Hgb 13.2 L (14.0-18.0) g/dl Hct 39 L (42-52) % MCV 84 (80-94) fL MCH 28 (27-31) pg MCHC 34 (31-36) g/dl RDW 14 (10.5-15) % Plt Count 252 (150-450) 10^3/ul MPV 7.5 (7.4-10.4) fL Neut % (Auto) 80.3 % Lymph % (Auto) 10.2 % [place] % (Auto) 8.6 % Eos % (Auto) 0.3 % Baso % (Auto) 0.6 % Absolute Neuts (auto) 11.7 H (1.5-7.7) 10^3/ul Absolute Lymphs (auto) 1.5 (1.0-4.8) 10^3/ul Absolute Monos (auto) 1.3 H (0-0.8) 10^3/ul Absolute Eos (auto) 0 (0-0.6) 10^3/ul Absolute Basos (auto) 0.1 (0-0.2) 10^3/ul Absolute Nucleated RBC 0 10^3/ul Nucleated RBC % 0 INR (Anticoag Therapy) 1.28 H (0.77-1.02) APTT 37.1 H (26.0-36.3) seconds Sodium (135-145) mmol/L Potassium (3.5-5.0) mmol/L Chloride (101-111) mmol/L Carbon Dioxide (22-32) mmol/L Anion Gap (2-11) mmol/L BUN (6-24) mg/dL Creatinine (0.67-1.17) mg/dL Est GFR ( Amer) (>60) Est GFR (Non-Af Amer) (>60) BUN/Creatinine Ratio (8-20) Glucose (70-100) mg/dL Lactic Acid (0.5-2.0) mmol/L Calcium (8.6-10.3) mg/dL Total Bilirubin (0.2-1.0) mg/dL AST (13-39) U/L ALT (7-52) U/L Alkaline Phosphatase (34-104) U/L Total Protein (6.4-8.9) g/dL Albumin (3.2-5.2) g/dL Globulin (2-4) g/dL Albumin/Globulin Ratio (1-3) Urine Color Yellow Urine Appearance Clear Urine pH 7.0 (5-9) Ur Specific [place] 1.014 (1.010-1.030) Urine Protein Negative (Negative) Urine Ketones Negative (Negative) Urine Blood 2+ A (Negative) Urine Nitrate Positive A (Negative) Urine Bilirubin Negative (Negative) Urine Urobilinogen Negative (Negative) Ur Leukocyte Esterase 2+ A (Negative) Urine WBC (Auto) 3+(>20/hpf) A (Absent) Urine RBC (Auto) 2+(6-10/hpf) A (Absent) Urine Bacteria 1+ A (Absent) Urine Yeast Present A (Absent) Urine Glucose Negative (Negative) 05/16/18 05/16/18 Range/Units 19:52 19:52 WBC (3.5-10.8) 10^3/ul RBC (4.00-5.40) 10^6/ul Hgb (14.0-18.0) g/dl Hct (42-52) % MCV (80-94) fL MCH (27-31) pg MCHC (31-36) g/dl RDW (10.5-15) % Plt Count (150-450) 10^3/ul MPV (7.4-10.4) fL Neut % (Auto) % Lymph % (Auto) % [place] % (Auto) % Eos % (Auto) % Baso % (Auto) % Absolute Neuts (auto) (1.5-7.7) 10^3/ul Absolute Lymphs (auto) (1.0-4.8) 10^3/ul Absolute Monos (auto) (0-0.8) 10^3/ul Absolute Eos (auto) (0-0.6) 10^3/ul Absolute Basos (auto) (0-0.2) 10^3/ul Absolute Nucleated RBC 10^3/ul Nucleated RBC % INR (Anticoag Therapy) (0.77-1.02) APTT (26.0-36.3) seconds Sodium 136 (135-145) mmol/L Potassium 3.8 (3.5-5.0) mmol/L Chloride 102 (101-111) mmol/L Carbon Dioxide 25 (22-32) mmol/L Anion Gap 9 (2-11) mmol/L BUN 19 (6-24) mg/dL Creatinine 1.04 (0.67-1.17) mg/dL Est GFR ( Amer) 86.7 (>60) Est GFR (Non-Af Amer) 71.7 (>60) BUN/Creatinine Ratio 18.3 (8-20) Glucose 113 H (70-100) mg/dL Lactic Acid 1.4 (0.5-2.0) mmol/L Calcium 9.4 (8.6-10.3) mg/dL Total Bilirubin 1.00 (0.2-1.0) mg/dL AST 13 (13-39) U/L ALT 10 (7-52) U/L Alkaline Phosphatase 90 (34-104) U/L Total Protein 7.5 (6.4-8.9) g/dL Albumin 3.7 (3.2-5.2) g/dL Globulin 3.8 (2-4) g/dL Albumin/Globulin Ratio 1.0 (1-3) Urine Color Urine Appearance Urine pH (5-9) Ur Specific [place] (1.010-1.030) Urine Protein (Negative) Urine Ketones (Negative) Urine Blood (Negative) Urine Nitrate (Negative) Urine Bilirubin (Negative) Urine Urobilinogen (Negative) Ur Leukocyte Esterase (Negative) Urine WBC (Auto) (Absent) Urine RBC (Auto) (Absent) Urine Bacteria (Absent) Urine Yeast (Absent) Urine Glucose (Negative) Microbiology and Other Data: Microbiology 05/16/18 22:15 Influenza Types A,B Antigen - Final Nasopharyngeal Specimen received for Influenza A/B Molecular testing Assess/Plan/Problems-Billing Assessment: - Patient Problems (1) Urinary tract infection Current Visit: Yes Status: Acute Comment: IV rocephin f/u cultures IV fluids. (2) Atrial fibrillation Current Visit: Yes Status: Acute Code(s): I48.91 - UNSPECIFIED ATRIAL FIBRILLATION SNOMED Code(s): 44836377 Comment: Currently in sinus rhythm continue eliquis for anticoagulation, and c/w metoprolol and propafenone Status and Disposition: Assessment and plan discussed with patient and bedside Additional management as the hospital course progresses, per discretion of daytime rounding hospitalist. Medications/Allergies Medications: Home Medications Medication Instructions Recorded Confirmed Type Apixaban* [Eliquis*] 5 mg PO BID 04/27/15 05/16/18 History Acetaminophen TAB* [Tylenol TAB*] 2 tab PO SEE INSTRUCTIONS PRN 08/05/15 History Potassium Citrate (NF) [Urocit-K 20 meq PO TID 09/04/16 05/16/18 History 10 (NF)] Metoprolol Succinate ER 25 mg PO BID 04/08/17 05/16/18 History Propafenone ER (NF) [Rythmol ER 225 mg PO TID 02/14/18 05/16/18 History (NF)] Allergies/Adverse Reactions: Allergies Allergy/AdvReac Type Severity Reaction Status Date / Time No Known Allergies Allergy Verified 04/29/16 09:08
[2018-05-16] MEDS ORDERED: NS 0.9% 1000 ML* 1,000 ML IV SCH (23:45)
[2018-05-16] MEDS ORDERED: cefTRIAXone(*) 1 GM in NS 0.9% 50 ML* 50 ML IVPB SCH (23:45)
[2018-05-17] MEDS: Apixaban* 5 MG TAB PO SCH ×2 (04:58→17:04)
[2018-05-17] MEDS: PROPAFENONE 225 MG PO SCH ×3 (04:58→21:46)
[2018-05-17] MEDS: Metoprolol Succinate XL TAB* 25 MG PO SCH ×2 (04:58→17:04)
[2018-05-17 06:35] LABS: ABS Basophils 0.1 10^3/ul (0-0.2); ABS Eosinophils 0 10^3/ul (0-0.6); ABS Lymphocytes 1.1 10^3/ul (1.0-4.8); ABS Monocytes 1.1 10^3/ul (0-0.8); ABS Neutrophils 11.3 10^3/ul (1.5-7.7); ABS Nucleated RBC 0 10^3/ul; Eosinophil % 0.3 %; Hematocrit 34 % (42-52); Hemoglobin 11.4 g/dl (14.0-18.0); Lymphocyte % 8.2 %; Mean Corpuscular HGB Conc 34 g/dl (31-36); Mean Corpuscular Hemoglobin 28 pg (27-31); Mean Corpuscular Volume 84 fL (80-94); Mean Platelet Volume 7.1 fL (7.4-10.4); Nucleated Red Blood Cells % 0; Platelet Count 212 10^3/ul (150-450); Red Blood Count 4.07 10^6/ul (4.00-5.40); Red Cell Distribution Width 14 % (10.5-15); White Blood Count 13.6 10^3/ul (3.5-10.8)
[2018-05-17 06:51] LABS: BUN/Creatinine Ratio 17.8 (8-20); Calcium 8.3 mg/dL (8.6-10.3); EGFR African American 102.5 (>60); EGFR Non-African American 84.7 (>60); Potassium 3.5 mmol/L (3.5-5.0)
[2018-05-17] MEDS: PTO: Potassium Citrate (NF) 10 MEQ TAB PO SCH ×3 (08:28→21:46)
--- NOTE | 2018-05-17 12:59 | PN ---
Subjective Date of Service: 05/17/18 Interval History: Patient is feeling well today. Patient states he still has slight dysuria and no feeling of incomplete emptying of his bladder. Patient denies F/C, N/V, abdominal pain, diarrhea, CP, SOB, palpitations, dizziness on standing. Patient denies any recent changes in his routine or lifestyle except for a knee replacement 5 weeks ago. Patient states his knee hurts but has not had increased swelling or redness. Family History: Unchanged from Admission Social History: Unchanged from Admission Past Medical History: Unchanged from Admission Objective Active Medications: Acetaminophen (Tylenol Tab*) 650 mg PO Q6H PRN PRN Reason: FEVER/PAIN Apixaban (Eliquis*) 5 mg PO 0500,1700 [facility] Last Admin: 05/17/18 04:58 Dose: 5 mg Sodium Chloride (Ns 0.9% 1000 Ml*) 1,000 mls @ 100 mls/hr IV PER RATE [facility] Last Admin: 05/17/18 04:10 Dose: 100 mls/hr Ceftriaxone Sodium 1 gm/ (Sodium Chloride) 50 mls @ 200 mls/hr IVPB 2100 [facility] Metoprolol Succinate (Toprol Xl Tab*) 25 mg PO 0500,1700 [facility] Last Admin: 05/17/18 04:58 Dose: 25 mg Ondansetron HCl (Zofran Inj*) 4 mg IV Q6H PRN PRN Reason: NAUSEA Potassium Citrate (Urocit-K 10 (Nf)) 20 meq PO TID [facility] Last Admin: 05/17/18 08:28 Dose: 20 meq Propafenone HCl (Rythmol Sr (Nf)) 225 mg PO 0500,1300,2100 [facility]; Protocol Last Admin: 05/17/18 04:58 Dose: 225 mg Vital Signs - 8 hr 05/17/18 05/17/18 05/17/18 07:24 09:23 11:22 Temperature 99.3 F 99.6 F Pulse Rate 102 99 Respiratory 16 16 16 Rate Blood Pressure 137/84 124/68 (mmHg) O2 Sat by Pulse 98 96 Oximetry Oxygen Devices in Use Now: None Appearance: Patient is a 67yo male who appears stated age and is sitting in the bed in [facility]. Eyes: No Scleral Icterus, PERRLA Ears/Nose/Mouth/Throat: NL Teeth, Lips, Gums, Clear Oropharnyx, Mucous Membranes Moist Neck: NL Appearance and Movements; NL JVP, Trachea Midline Respiratory: Symmetrical Chest Expansion and Respiratory Effort, Clear to Auscultation Cardiovascular: NL Sounds; No Murmurs; No JVD, RRR, No Edema Abdominal: NL Sounds; No Tenderness; No Distention, No Hepatosplenomegaly, - - No CVA tenderness. Lymphatic: No Cervical Adenopathy Extremities: No Edema, No Clubbing, Cyanosis Skin: No Rash or Ulcers, No Nodules or Sclerosis Neurological: Alert and Oriented x 3, NL Sensation, NL Muscle Strength and Tone , - - CN II-XII intact. Result Diagrams: 05/17/18 06:21 05/17/18 06:21 Additional Lab and Data: Lab Results Microbiology and Other Data: Microbiology 05/16/18 22:15 Influenza Types A,B Antigen - Final Nasopharyngeal Specimen received for Influenza A/B Molecular testing Assess/Plan/Problems-Billing Assessment: Patient is a 67yo male with a PMH for kidney stones who presents with urinary symptoms and fevers. Patient has evidence of prostatitis on CT and is being treated with IV antibiotics pending cultures. - Patient Problems (1) Urinary tract infection Current Visit: Yes Status: Acute Comment: - With associated Prostatitis based on CT imaging - Cultures show E. coli pending sensitivities - Will need 6 week course of antibiotics (2) Atrial fibrillation Current Visit: Yes Status: Acute Code(s): I48.91 - UNSPECIFIED ATRIAL FIBRILLATION SNOMED Code(s): 16343677 Comment: - Currently in sinus rhythm - Continue eliquis for anticoagulation, - Continue metoprolol and propafenone for rate/rhythm control (3) DVT prophylaxis Current Visit: Yes Status: Acute Code(s): [id number] - SNOMED Code(s): 131827042 Comment: -Eliquis (4) Full code status Current Visit: Yes Status: Acute Code(s): Z78.9 - OTHER SPECIFIED HEALTH STATUS SNOMED Code(s): 779401069 Status and Disposition: Inpatient pending urine sensitivities, hopeful discharge tomorrow.
[2018-05-17] MEDS ORDERED: Magnesium Hydroxide LIQ* 30 ML UDC PO PRN (14:08)
[2018-05-17] MEDS ORDERED: cefTRIAXone(*) 1 GM in NS 0.9% 50 ML* 50 ML IVPB SCH (21:00)
[2018-05-18] MEDS: Metoprolol Succinate XL TAB* 25 MG PO SCH (05:06)
[2018-05-18] MEDS: Apixaban* 5 MG TAB PO SCH (05:06)
[2018-05-18] MEDS: PROPAFENONE 225 MG PO SCH (05:07)
[2018-05-18 06:21] LABS: ABS Basophils 0 10^3/ul (0-0.2); ABS Eosinophils 0.1 10^3/ul (0-0.6); ABS Lymphocytes 1.6 10^3/ul (1.0-4.8); ABS Neutrophils 7.3 10^3/ul (1.5-7.7); ABS Nucleated RBC 0 10^3/ul; Eosinophil % 1.1 %; Hematocrit 34 % (42-52); Hemoglobin 11.4 g/dl (14.0-18.0); Mean Corpuscular HGB Conc 34 g/dl (31-36); Mean Corpuscular Hemoglobin 29 pg (27-31); Mean Corpuscular Volume 85 fL (80-94); Mean Platelet Volume 7.7 fL (7.4-10.4); Nucleated Red Blood Cells % 0; Platelet Count 219 10^3/ul (150-450); Red Blood Count 3.96 10^6/ul (4.00-5.40); Red Cell Distribution Width 14 % (10.5-15); White Blood Count 9.9 10^3/ul (3.5-10.8)
[2018-05-18 06:40] LABS: BUN/Creatinine Ratio 14.8 (8-20); Calcium 8.6 mg/dL (8.6-10.3); EGFR African American 105.2 (>60); EGFR Non-African American 86.9 (>60); Magnesium 1.8 mg/dL (1.9-2.7); Potassium 3.7 mmol/L (3.5-5.0)
[2018-05-18 08:03] VITALS: BP 129/77
[2018-05-18] MEDS: PTO: Potassium Citrate (NF) 10 MEQ TAB PO SCH (08:53)
[2018-05-18] MEDS ORDERED: Sulfamethox/Trimethoprim DS 800/160* TAB PO SCH (09:00)
[2018-05-18] MEDS ORDERED: Magnesium Oxide TAB* 400 MG PO SCH (09:00)
--- NOTE | 2018-05-20 00:39 | DS ---
CC: Dr. Julian * DISCHARGE SUMMARY: DATE OF ADMISSION: 05/16/18 DATE OF DISCHARGE: 05/18/18 PRIMARY CARE PROVIDER: Dr. Julian MY ATTENDING WHILE IN HOSPITAL: Dr. Cary Villagomez.* (DICTATED BY AZAM WOODALL) PRIMARY DISCHARGE DIAGNOSIS: Acute bacterial prostatitis. SECONDARY DISCHARGE DIAGNOSES: 1. History of atrial fibrillation. 2. History of uric acid kidney stones. STUDIES DONE WHILE IN THE HOSPITAL: Abdomen and pelvis CT from 05/16/18 read as mild suspicion for inflammation or infection, incomplete distention versus underlying inflammation pathology with possible wall thickening of the urinary bladder, no acute disease. MEDICATIONS AT DISCHARGE: 1. Eliquis 5 mg p.o. b.i.d. 2. Tylenol 650 mg p.o. q.4 hours as needed. 3. Potassium citrate 20 mEq p.o. t.i.d. 4. Metoprolol succinate 25 mg p.o. b.i.d. 5. Propafenone 225 mg p.o. t.i.d. 6. Magnesium hydroxide 30 mL p.o. q.6 hours as needed. 7. Magnesium oxide 400 mg p.o. daily. 8. Bactrim Double Strength 1 tab p.o. b.i.d. x83. HOSPITAL COURSE: This is a brief summary of the patient's presentation. For more details, please see the history and physical from Dr. Elayne Reed on . In brief, the patient is a 67-year-old male with past medical history significant for the above who presented to the emergency department with burning , urinary hesitancy and urgency x3 days with associated fever and chills and general malaise. The patient was also having significant abdominal pain. The patient had no recent instrumentation of the urinary tract except for a Gentile catheter placement during a recent knee replacement. The patient had no other high risk behaviors. The patient was admitted to the hospital. The patient initially had a white blood cell count, which declined to 9.9 on the day of his discharge. The patient had a positive urinalysis, which grew E. Coli, which was maguire sensitive. The patient had no growth on his blood cultures. The patient was started on ceftriaxone and felt much better on this. The patient was transitioned to Bactrim on the day of his discharge and tolerated this well. The patient had slight anemia, which he states he has had since he had his knee replacement. The patient was on iron supplementation, but finished it. The patient had no profound arrhythmias while in the hospital. The patient was stable and amenable for discharge on 05/18/18. PHYSICAL EXAM ON THE DAY OF DISCHARGE: General: The patient is a 67-year-old male who appears stated age and sitting comfortably in bed in no acute distress. HEENT: Head: Normocephalic, atraumatic. Sclerae are anicteric. No conjunctival injection. Nasal mucosa moist. Oral mucosa moist. No pharyngeal erythema, discharge, or exudate. Neck: Supple, nontender. No lymphadenopathy. No carotid bruits auscultated. No JVD. Cardiac: Irregular rate and rhythm. No clicks, murmurs, gallops, or rubs. Pulses are 2+ in the bilateral dorsalis pedis, posterior tibialis and radial areas. Respiratory: Clear to auscultation bilaterally. No wheezes, rales or rhonchi. Good air exchange bilaterally. Abdomen: Soft, nontender, nondistended. Bowel sounds present and normoactive in all 4 quadrants. No hepatospleno-megaly. No abdominal bruits auscultated. No hepatojugular reflux. Genitourinary: No suprapubic or CVA tenderness. Skin: Clean, dry, and intact. No rash. Neuro: Cranial nerves II through XII are intact. No focal deficits. Alert and oriented x3. Psychiatric: Pleasant and cooperative. DISCHARGE PLAN: The patient will be discharged to home. The patient should have 6 weeks of antibiotic therapy. The patient's E. Coli in his urine and presumably prostate are maguire sensitive, the patient will be started on Bactrim. Due to concern for QT prolongation, continue his Rythmol and ciprofloxacin. The patient is on potassium citrate for uric acid stone. Prophylaxis, the patient should have a repeat BMP within 1 week from his primary care provider for possible hyperkalemia with Bactrim. The patient should return to the hospital for high fevers, severe pain with urination, inability to urinate or other alarming symptoms. The patient should follow up with his surgeon to discuss possible continuation of his iron therapy. The patient should follow up with his urologist within 1 month for general management and to discuss his prostatitis. The patient will call his urologist on the day of his discharge and discuss his treatment. The patient should have a heart healthy diet with decaf okay and should engage in activities as tolerated. TIME SPENT: Approximately 45 minutes spent on the discharge of the patient, 20 of which was spent in [id number] with the patient obtaining history and physical and discussing treatment plan. AZAM WOODALL [id number]/CPS #: [id number]
== END 2018-05-18 10:20 | disposition home or self-care (01) | DRG 690 ==
LOC: ED 18:05 → MED 23:42
PROVIDERS: ADMIT Internal Medicine; ATTEND Internal Medicine
DX: N39.0 Urinary tract infection, site not specified (principal); N41.9 Inflammatory disease of prostate, unspecified; Z87.442 Personal history of urinary calculi; I48.91 Unspecified atrial fibrillation; Z98.52 Vasectomy status; Z96.653 Presence of artificial knee joint, bilateral; Z80.0 Family history of malignant neoplasm of digestive organs; Z83.6 Family history of other diseases of the respiratory system
CPT/HCPCS: 36415; 74176; 80048; 80053; 81003; 81015; 83605; 83735; 85025; 85610; 85730; 87040; 87077; 87086; 87186; 99283; A9270-GY; J0696